=== PATIENT | male | born 1955 | race Caucasian/White ===

== ENCOUNTER → 2016-07-26 | Outpatient (CLI) | payer BC ==
[~2016-07-26] MED LIST: HYDR-3419 PO; LISI20TA PO; PANT40TA PO; PRAV80TA2 PO; [UNRECOGNIZED DRUG - OTHER] PO
[2016-07-26 08:50] LABS: ALT/SGPT 31 U/L (12-78); BLOOD UREA NITROGEN 19 mg/dl (7-18); BUN/CREATININE RATIO 14.8 (10-20); CARBON DIOXIDE 29 mmol/L (21-32); CHLORIDE 104 mmol/L (98-107); CHOLESTEROL 212 mg/dl (0-200); GLUCOSE 107 mg/dl (70-99); POTASSIUM 3.7 mmol/L (3.5-5.1); SODIUM 142 mmol/L (136-145)
[2016-07-26 08:56] LABS: ALB/GLOB RATIO 0.9 (0.9-2); ALKALINE PHOSPHATASE 68 U/L (45-117); AST/SGOT 19 U/L (15-37); CHOLESTEROL/HDL RATIO 4.5; HDL CHOLESTEROL 47 mg/dl; LDL CHOLESTEROL CALCULATED 110 mg/dl; TRIGLYCERIDES 274 mg/dl (0-150); VERY LOW DENSITY LIPOPROT CALC 55 mg/dl
[2016-07-26 10:30] LABS: ESTIMATED AVERAGE GLUCOSE 120 mg/dl; HA1C FLAG Normal (Normal)
== END | disposition home or self-care (01) ==
LOC: C.LAB 06:57
PROVIDERS: ATTEND Internal Medicine
DX: R73.01 Impaired fasting glucose (principal)

== ENCOUNTER → 2016-09-03 | Outpatient (CLI) | payer BC ==
[~2016-09-03] MED LIST changes: +GLUCTAB7 PO; +LISI-787 PO
== END | disposition home or self-care (01) ==
LOC: C.PATHSPEC 15:00
PROVIDERS: ATTEND Physician Assistant Medical
DX: L82.1 Other seborrheic keratosis (principal); L91.8 Other hypertrophic disorders of the skin

== ENCOUNTER → 2017-03-13 | Outpatient (CLI) | payer BC ==
[~2017-03-13] MED LIST changes: -GLUCTAB7 PO; -LISI-787 PO
[2017-03-13 10:59] LABS: ALT/SGPT 25 U/L (12-78); BLOOD UREA NITROGEN 15 mg/dl (7-18); BUN/CREATININE RATIO 12.3 (10-20); CALCIUM 9.2 mg/dl (8.5-10.1); CARBON DIOXIDE 32 mmol/L (21-32); CHLORIDE 104 mmol/L (98-107); CHOLESTEROL 192 mg/dl (0-200); GLUCOSE 101 mg/dl (70-99); SODIUM 140 mmol/L (136-145); TRIGLYCERIDES 189 mg/dl (0-150); VERY LOW DENSITY LIPOPROT CALC 38 mg/dl
[2017-03-13 11:04] LABS: ALB/GLOB RATIO 1.1 (0.9-2); ALKALINE PHOSPHATASE 67 U/L (45-117); AST/SGOT 16 U/L (15-37); HDL CHOLESTEROL 48 mg/dl; LDL CHOLESTEROL CALCULATED 106 mg/dl
== END | disposition home or self-care (01) ==
LOC: C.LAB 09:42
PROVIDERS: ATTEND Internal Medicine
DX: Z12.5 Encounter for screening for malignant neoplasm of prostate (principal); R73.01 Impaired fasting glucose

== ENCOUNTER 2017-03-23 21:24 | Emergency (ER) | payer BC ==
[~2017-03-23] VITALS: Ht 172.7 cm; Wt 96.8 kg
[2017-03-23 21:34] VITALS: TEMP 36.6; Ht 172.7 cm; Wt 96.8 kg
[2017-03-23] MEDS ORDERED: PHENYLEPHRINE HCL INJ 10 MG in SYRINGE 19 ML ITC STA (21:41)
[2017-03-23] MEDS ORDERED: SODIUM CHLORIDE 0.9% 500ML 500 ML IV STA (21:51)
[2017-03-23] MEDS ORDERED: ONDANSETRON INJ 2 MG/ML 2 ML VIAL IV STA (21:51)
[2017-03-23] MEDS ORDERED: HYDROmorphone INJ 1 MG/ML SYR IV STA (21:51)
[2017-03-23] MEDS ORDERED: LISI-787 PO (21:54)
[2017-03-23] MEDS ORDERED: GLUCTAB7 PO (21:54)
--- NOTE | 2017-03-23 22:03 | EMERGENCY ROOM VISIT NOTE ---
History Report prepared by Tonnyibrobles: Mignon Marsh Under the Supervision of: Dr. Masoud Bianchi M.D. First contact with patient: 21:48 Chief Complaint: OTHER COMPLAINT Stated Complaint: ERECTION OVER 4 HOURS History of Present Illness The patient is a 61 year old male who presents to the Emergency Room with complaints of a persistent erection for the past 5 hours. He is accompanied by his . He states he was at the office of Dr. rAevalo of [facility], for a procedure this afternoon and was given a shot for the erection. He called their office this evening and they referred him here to the ED for evaluation. He rates his discomfort as an 8/10 in severity. He denies any other complaints at today's visit. Source of History: patient Onset: 5 hours [employer] Position: other (penis) Symptom Intensity: 8/10 Timing: other (persistent) Review of Systems See HPI for pertinent positives & negatives. A total of 10 systems reviewed and were otherwise negative. Past Medical & Surgical Medical Problems: (1) Hypertension Social History Smoking Status: Never Smoker Alcohol Use: occasionally Drug Use: none Marital Status: Housing Status: lives with family Occupation Status: retired Current/Historical Medications Scheduled Qfohmnpxczt-Mxpjyphzdjm-Dkr C- (Glucosamine Chondroitin), 2 TABS PO DAILY Lisinopril/Hctz (Zestoretic 20MG/12.5MG), 1 TAB PO DAILY Pantoprazole (Protonix), 40 MG PO QAM Pravastatin Sodium (Pravastatin Sodium), 80 MG PO QAM Allergies Coded Allergies: Sulfa Drugs (Verified Allergy, Unknown, RASH, 03/23/17) Physical Exam Vital Signs Date Time Temp Pulse Resp B/P (MAP) Pulse Ox O2 Delivery O2 Flow Rate FiO2 03/24/17 00:26 69 18 114/69 97 Room Air 03/23/17 23:48 84 18 117/65 95 Room Air 03/23/17 22:08 72 03/23/17 21:34 36.6 72 16 158/93 98 Room Air Physical Exam GENERAL: Patient is a healthy-appearing well-nourished 61 year old male HEAD: Normocephalic atraumatic EYES: Ocular movements intact pupils equal and react to light OROPHARYNX mucous membranes are moist no exudates present no erythema or edema present NECK: Supple no nuchal rigidity CARDIAC: Normal S1 and S2 BACK: No CVA tenderness EXTREMITIES: No pain upon palpation normal muscle strength in all groups no clubbing cyanosis or edema NEURO: Patient is following commands and answering questions appropriately. Alert and oriented x3 Cranial Nerves 2-12 grossly intact Medical Decision & Procedures Laboratory Results 03/23/17 22:03 Red Blood Count 4.85, Mean Corpuscular Volume 86.2, Mean Corpuscular Hemoglobin 29.5, Mean Corpuscular Hemoglobin Concent 34.2, Mean Platelet Volume 9.2, Neutrophils (%) (Auto) 61.9, Lymphocytes (%) (Auto) 28.9, Monocytes (%) (Auto) 7.9, Eosinophils (%) (Auto) 1.0, Basophils (%) (Auto) 0.1, Neutrophils # (Auto) 5.35, Lymphocytes # (Auto) 2.50, Monocytes # (Auto) 0.68, Eosinophils # (Auto) 0.09, Basophils # (Auto) 0.01 03/23/17 22:03 Test 03/23/17 22:03 White Blood Count 8.65 K/uL (4.8-10.8) Red Blood Count 4.85 M/uL (4.7-6.1) Hemoglobin 14.3 g/dL (14.0-18.0) Hematocrit 41.8 % (42-52) Mean Corpuscular Volume 86.2 fL (80-100) Mean Corpuscular Hemoglobin 29.5 pg (25-34) Mean Corpuscular Hemoglobin Concent 34.2 g/dl (32-36) Platelet Count 149 K/uL (130-400) Mean Platelet Volume 9.2 fL (7.4-10.4) Neutrophils (%) (Auto) 61.9 % Lymphocytes (%) (Auto) 28.9 % Monocytes (%) (Auto) 7.9 % Eosinophils (%) (Auto) 1.0 % Basophils (%) (Auto) 0.1 % Neutrophils # (Auto) 5.35 K/uL (1.4-6.5) Lymphocytes # (Auto) 2.50 K/uL (1.2-3.4) Monocytes # (Auto) 0.68 K/uL (0.11-0.59) Eosinophils # (Auto) 0.09 K/uL (0-0.5) Basophils # (Auto) 0.01 K/uL (0-0.2) RDW Standard Deviation 41.6 fL (36.4-46.3) RDW Coefficient of Variation 13.1 % (11.5-14.5) Immature Granulocyte % (Auto) 0.2 % Immature Granulocyte # (Auto) 0.02 K/uL (0.00-0.02) Anion Gap 7.0 mmol/L (3-11) Est Creatinine Clear Calc Drug Dose 76.4 ml/min Estimated GFR () 78.9 Estimated GFR (Non- 68.1 BUN/Creatinine Ratio 13.4 (10-20) Calcium Level 9.0 mg/dl (8.5-10.1) Phosphorus Level 3.6 mg/dl (2.5-4.9) Albumin 3.8 gm/dl (3.4-5.0) Labs reviewed by ED physician. Medications Administered Medications (Trade) Dose Ordered Sig/Toney Route Start Time Stop Time Status Last Admin Dose Admin Phenylephrine HCl 10 mg/Syringe 20 ml @ 0 mls/min NOW STAT ITC 03/23/17 21:41 03/23/17 21:42 DC 03/23/17 22:19 20 MLS/MIN Hydromorphone HCl (Dilaudid Inj) 1 mg NOW STAT IV 03/23/17 21:51 03/23/17 21:52 DC 03/23/17 22:15 1 MG Ondansetron HCl (Zofran Inj) 4 mg NOW STAT IV 03/23/17 21:51 03/23/17 21:52 DC 03/23/17 22:14 4 MG Sodium Chloride 500 ml @ 999 mls/hr Q31M STAT IV 03/23/17 21:51 03/23/17 22:21 DC 03/23/17 22:14 999 MLS/HR Lidocaine HCl (Buffered Lidocaine 1% Inj) 20 ml STK-MED ONCE INFIL 03/23/17 22:27 03/23/17 22:28 DC 03/23/17 22:27 20 ML ED Course 2140: Phenylephrine HCl 10 mg/Syringe 20 ml @ 0 mls/hr ITC. 2150: NSS 500 ml @ 999 mls/hr IV, Zofran 4 mg IV, Dilaudid 1 mg IV. 2151: I discussed the patients case with Dr. Parnell, [facility]. The patient will be further evaluated. 2155: Past medical records reviewed. The patient was evaluated in room A9B. A complete history and physical examination was performed. 0: I discussed the patients case with Dr. Parnell. He states if the priapism remains down until midnight, he will follow up with the patient in the office. 0: I reevaluated the patient. He is feeling well and resting comfortably. I discussed his discharge instructions and he verbalized complete understanding and agreement. Medical Decision This is a 61-year-old male that presents emergency Department with a priapism. An IV was established, patient given normal saline bolus, Dilaudid. I did discuss the case with urologist on-call Dr. Parnell who came in any ejected phenylephrine. The patient remained flaccid and was observed for a total hour further in the emergency department. I believe the patient is well enough to be discharged home. He is going to follow-up with urology in the morning. Medication Reconcilliation Current Medication List: was personally reviewed by me Blood Pressure Screening Patient's blood pressure: Normal blood pressure Blood pressure disposition: Did not require urgent referral Consults Time Called: 2149 Consulting Physician: [facility] Returned Call: 2151 I discussed the patients case with [facility]. The patient will be further evaluated. Impression Primary Impression: Priapism Scribe Attestation The scribe's documentation has been prepared under my direction and personally reviewed by me in its entirety. I confirm that the note above accurately reflects all work, treatment, procedures, and medical decision making performed by me. Departure Information Dispostion Home / Self-Care Referrals Ranulfo Kamara M.D. (PCP) Patient Instructions ED Priapism, My [facility] Additional Instructions Follow up with DR Parnell's office tomorrow morning You have been examined and treated today on an emergency basis only. This is not a substitute for, or an effort to provide, complete comprehensive medical care. It is impossible to recognize and treat all injuries or illnesses in a single emergency department visit. It is therefore important that you follow up closely with Dr Kamara. Call as soon as possible for an appointment. Thank you for your time and consideration. I look forward to speaking with you again soon. Please don't hesitate to call us if you have any questions.
[2017-03-23 22:22] LABS: BASO % 0.1 %; BASO ABS # 0.01 K/uL (0-0.2); COMPLETE YES; HEMATOCRIT 41.8 % (42-52); IG% 0.2 %; LYMPH % 28.9 %; MEAN CELL VOLUME 86.2 fL (80-100); MEAN CORPUSCULAR HEMOGLOBIN 29.5 pg (25-34); MEAN CORPUSCULAR HGB CONC 34.2 g/dl (32-36); MEAN PLATELET VOLUME 9.2 fL (7.4-10.4); MONO % 7.9 %; NEUT % 61.9 %; PLATELET COUNT 149 K/uL (130-400); RED BLOOD COUNT 4.85 M/uL (4.7-6.1); WHITE BLOOD COUNT 8.65 K/uL (4.8-10.8)
--- NOTE | 2017-03-23 22:26 | Progress Note ---
Progress Note Date of Service Mar 23, 2017. Progress Note 61y/o male seen in the urology office today as an outpt - suffers from Peyronie's disease - during evaluation today, had an injection of alprostadil to induce an erection - unfortunately, his erection did not resolve - quite painful Physical - Erect penis, tender - RRR, - HR 65 - on monitor - no resp distress Procedure - injection of phenylephrine - 1ml after swab with betadine - observed for 10min - no decrease in erection - skin anesthesized with 1% lidocaine - 18g needle passed into the corpora - significant, dark, old blood drained from the penis - decreased erection by 50 %+ - injected 1ml of dilute phenylephrine - maintained 50% erection for 5 minutes then started to increase back to a full erection - drained again - injected 1ml more of dilute phenylephrine - maintained 50% erection for 5 minutes - withdrew the needle held pressure (already with a moderate hematoma at that stage - no change (50% erection after 10 additional minutes) - maintained at the mid range erection after an additional 10 min A/P: Pharmacological priapism - attempted simple reversal with phenylephrine - required evacuation of old blood followed by re-injection - still with incomplete response - however, given the partial detumescence and the amount of medication given, I feel we are best suited to observe this overnight - I have given him strict instructions to return to the ER if his erection returns to the degree it was at first eval - I have asked him to come to our office for evaluation tomorrow morning regardless - moderate hematoma
[2017-03-23] MEDS ORDERED: XYLOCAINE 1%/SOD BICARB 20 ML VIAL INFIL ONE (22:27)
[2017-03-23 22:49] LABS: BUN/CREATININE RATIO 13.4 (10-20); CREATININE 1.16 mg/dl (0.60-1.40); PHOSPHORUS 3.6 mg/dl (2.5-4.9); POTASSIUM 3.3 mmol/L (3.5-5.1)
[2017-03-24 00:26] VITALS: BP 114/69; PULSE 69; O2SAT 97
== END 2017-03-24 00:35 | disposition home or self-care (01) ==
LOC: C.EDB 21:25 → C.EDA 03-24 00:35
DX: N48.33 Priapism, drug-induced (principal); I10 Essential (primary) hypertension; N48.6 Induration penis plastica; N48.89 Other specified disorders of penis; Z79.899 Other long term (current) drug therapy

== ENCOUNTER → 2017-07-10 | Day surgery (SDC) | payer OTHER ==
[2017-06-19 09:42] VITALS: BMI 31.0
--- NOTE | 2017-06-19 10:08 | PAT Medication Instructions ---
Service Date Jun 19, 2017. Current Home Medication List Acetaminophen (Tylenol), 500 MG PO QD PRN for Pain Gzszqamsusw-Lmolhazhrta-Ibq C- (Glucosamine Chondroitin), 2 TABS PO QAM Lisinopril/Hctz (Zestoretic 20MG/12.5MG), 1 TAB PO QAM Pantoprazole (Protonix), 40 MG PO QAM Pravastatin Sodium (Pravastatin Sodium), 80 MG PO QAM Medication Instructions For Your Scheduled Surgery - Hold the following medications 2 weeks prior to surgery: Kqxfhxmpmxm-Mqgavglrwzz-Joj C- (Glucosamine Chondroitin), 2 TABS PO QAM - Hold the following medications the morning of surgery: Lisinopril/Hctz (Zestoretic 20MG/12.5MG), 1 TAB PO QAM - Take the following medications the morning of surgery with a sip of water OTHERWISE NOTHING TO EAT OR DRINK AFTER MIDNIGHT: Pantoprazole (Protonix), 40 MG PO QAM Pravastatin Sodium (Pravastatin Sodium), 80 MG PO QAM Acetaminophen (Tylenol), 500 MG PO QD PRN for Pain (may take if needed up to 4 hours prior to surgery) If you have any questions please call us at [phone] or [phone] or [phone]
[2017-06-19 10:48] LABS: BASO % 0.2 %; BASO ABS # 0.01 K/uL (0-0.2); EOS % 1.3 %; EOS ABS # 0.07 K/uL (0-0.5); HEMATOCRIT 41.9 % (42-52); HEMOGLOBIN 14.5 g/dL (14.0-18.0); IG# 0.01 K/uL (0.00-0.02); LYMPH % 39.6 %; LYMPH ABS # 2.18 K/uL (1.2-3.4); MEAN CELL VOLUME 87.3 fL (80-100); MEAN CORPUSCULAR HEMOGLOBIN 30.2 pg (25-34); MEAN CORPUSCULAR HGB CONC 34.6 g/dl (32-36); MEAN PLATELET VOLUME 9.6 fL (7.4-10.4); MONO % 6.9 %; MONO ABS # 0.38 K/uL (0.11-0.59); NEUT % 51.8 %; NEUT ABS # 2.85 K/uL (1.4-6.5); PLATELET COUNT 142 K/uL (130-400); RED CELL DISTRIBUTION WIDTH CV 12.9 % (11.5-14.5); RED CELL DISTRIBUTION WIDTH SD 41.4 fL (36.4-46.3)
[2017-06-19 10:58] LABS: INR 0.9 (0.9-1.1); PTT PATIENT 26.1 SECONDS (21.0-31.0)
[2017-06-19 11:03] LABS: CREATININE 1.39 mg/dl (0.60-1.40); POTASSIUM 3.8 mmol/L (3.5-5.1)
--- NOTE | 2017-06-19 11:03 | DIAGNOSTIC IMAGING REPORT ---
TWO VIEW CHEST CLINICAL HISTORY: Preoperative examination. FINDINGS: PA and lateral chest radiographs are compared to study dated 02/27/2012. The cardiomediastinal silhouette is unremarkable. The lungs and pleural spaces are clear. There is no pneumothorax. The bony thorax appears intact. Cholecystectomy clips are noted. IMPRESSION: No active disease in the chest. Electronically signed by: Samm Kelley M.D. 06/19/2017 11:02 AM Dictated Date/Time: 06/19/2017 11:01 AM
--- NOTE | 2017-07-09 13:21 | History and Physical ---
History & Physical Date Jul 09, 2017. Chief Complaint right foot pain History of Present Illness The patient is a 62 year old male with complaints of right foot pain and 1st MTP osteoarthritis. He was treated conservatively for the 1st MTP arthritic change but failed all conservative management. He is now being set up for surgical management. Past Medical/Surgical History Medical Problems: (1) Hypertension (2) Hypercholesterolemia (3) Acid reflux Past surgical hx: (1) Right knee surgery (2) Left hand surgery Social hx: (1) Denies smoking and alcohol use. Allergies Coded Allergies: Sulfa Drugs (Verified Allergy, Unknown, RASH, 06/19/17) Home Medications Scheduled Xfscsjdpits-Wgfkyoauxoz-Cal C- (Glucosamine Chondroitin), 2 TABS PO QAM Lisinopril/Hctz (Zestoretic 20MG/12.5MG), 1 TAB PO QAM Pantoprazole (Protonix), 40 MG PO QAM Pravastatin Sodium (Pravastatin Sodium), 80 MG PO QAM Scheduled PRN Acetaminophen (Tylenol), 500 MG PO QD PRN for Pain Physical Examination Skin: warm/dry, no rash Eyes: normal inspection ENT: normal ENT inspection Head: normocephalic, atraumatic Neck: supple, no adenopathy, trachea midline Respiratory/Chest: lungs clear, normal breath sounds, no respiratory distress Cardiovascular: regular rate, rhythm Abdomen / GI: normal bowel sounds, non tender Extremities: + pertinent finding (Right foot: antalgic right gait. Swelling of the 1st MTP joint. Painful PROM and AROM with crepitation. Tender 1st MTP joint. ) Neurologic/Psych: no motor/sensory deficits, alert, oriented x 3 Diagnosis Right 1st MTP osteoarthritis Plan of Treatment Recommend a right foot 1st MTP Arthrosurface hemiarthroplasty. All potential risks, benefits, complications, alternatives, and rehab have been discussed and the patient wishes to proceed. He will be scheduled for 07.10.17.
[~2017-07-10] VITALS: Ht 175.3 cm; Wt 97.9 kg
[~2017-07-10] MED LIST changes: +ACET-1256 PO; +ASPI81TA28 PO; +ATROPINE SULFATE 0.1 MG/ML 5ML SYR IV PRN; +BACITRACIN 50000 UNIT VIAL ONE; +BUPIVACAINE/EPINEPHRINE 0.25% 1:200,000 30 ML VIAL ONE; +CEFAZOLIN 2000MG IV PUSH 10 ML IV SCH; +DEXAMETHASONE SOD INJ 4 MG/ML VIAL ONE; +EpHEDrine SULFATE INJ 50 MG/ML AMP IV PRN; +FENTANYL CITRATE INJ 50 MCG/1 ML 2 ML VIAL IV PRN; +FENTANYL CITRATE INJ 50 MCG/1 ML 2 ML VIAL ONE; +GLUCTAB7 PO; -HYDR-3419 PO; +HYDROmorphone INJ 1 MG/ML SYR IV PRN; +LACTATED RINGER'S 1000ML 1,000 ML IV SCH; +LIDOCAINE HCL 2% 2 ML VIAL (20MG/ML) ONE; +LISI-787 PO; -LISI20TA PO; +MIDAZOLAM HCL 1 MG/ML 2ML VIAL ONE; +ONDANSETRON INJ 2 MG/ML 2 ML VIAL IV PRN; +ONDANSETRON INJ 2 MG/ML 2 ML VIAL ONE; +OXYC-57 PO; +OXYCODONE/ACETAMINOPHEN 5-325 TAB PO PRN; +PERCOCET HOME PACK PO ONE; +PROMETHAZINE HCL INJ 6.25 MG in SODIUM CHLORIDE 0.9% 50ML 50 ML IV PRN; +PROPOFOL IV EMULSION 10 MG/ML 20 ML VIAL IV ONE; +ROPIVACAINE 0.5% 5 MG/ML 30 ML VIAL ONE; -[UNRECOGNIZED DRUG - OTHER] PO
[2017-07-10 13:22] VITALS: BP 181/92; PULSE 58; TEMP 36.4; O2SAT 98; Ht 175.3 cm; Wt 97.9 kg
--- NOTE | 2017-07-10 15:06 | History & Physical Bridge Note ---
H&P Re-Evaluation Bridge Note: I have examined the patient, reviewed the History & Physical and in the interval since the performance of the History & Physical I have noted the following changes of clinical significance: No changes noted
--- NOTE | 2017-07-10 18:48 | Discharge Instructions ---
Discharge Instructions Date of Service Jul 10, 2017. Admission Reason for Admission: Right Ankle/Foot Osteoarthritis, Acquired Hallux V Discharge Discharge Diagnosis / Problem: right 1st metatarsophalangeal osteoarthritis Discharge Goals Goal(s): Decrease discomfort, Improve function Activity Recommendations Activity Limitations: per Instructions/Follow-up section Weightbearing Status: Right partial (heel weightbearing only) . Instructions / Follow-Up Instructions / Follow-Up ACTIVITY RECOMMENDATIONS: Limitations: Heel weight bearing only if able to tolerate. When the pain is controlled, you may do some passive motion with the great toe. You may do the range of motion with your hand. SPECIAL CARE INSTRUCTIONS: * Some drainage onto the dressing is normal and is no cause for alarm. * Some swelling is natural especially after walking. * When resting, keep your foot elevated above the level of your heart. * Call [facility] if you notice: -Increased drainage -Fever over 101 degrees F -Severe constant pain BANDAGE: * Leave bandage/cast in place unless otherwise directed. * Keep bandage/cast dry at all times. FOLLOW UP VISIT WITH DR. ROMERO If appointment is not already scheduled: Please call [facility] after you get home today to schedule a follow-up appointment for [address] Romero at . Current Hospital Diet Patient's current hospital diet: Discharge Diet Recommended Diet: Regular Diet Pending Studies Studies pending at discharge: no Medical Emergencies . Who to Call and When: Medical Emergencies: If at any time you feel your situation is an emergency, please call 911 immediately. . Non-Emergent Contact Non-Emergency issues call your: Surgeon Call Non-Emergent contact if: temperature is above 101, your pain is not controlled, your pain is worsening, wound has increased drainage . "Provider Documentation" section prepared by Brian Webber. . VTE Core Measure Inpt VTE Proph given/why not?: SCD's
--- NOTE | 2017-07-10 19:13 | [facility] Post Operative Brief Note ---
Immediate Operative Summary Operative Date Jul 10, 2017. Pre-Operative Diagnosis Right 1st MTP osteoarthritis, Hallux Rigidus Post-Operative Diagnosis Right 1st MTP osteoarthritis, Hallux Rigidus Procedure(s) Performed Right Foot Arthroplasty 1st Metatarsophalangeal Joint, Arthrosurface Hemiarthroplasty Surgeon Dr. Christiano Charles Weaver Wire Loom Surgeon(s) Kathia Morales PA-C Estimated Blood Loss 1cc Findings Consistent with Post-Op Diagnosis Specimens None Drains None Anesthesia Type General Regional Complication(s) none Disposition Accompanied Pt To Recover: no Disposition: Recovery Room / PACU
--- NOTE | 2017-07-10 19:50 | Anesthesiology Progress Note ---
Anesthesia Post Op Note Date & Time Jul 10, 2017 at 19:50 Vital Signs Pain Intensity: 0 Vital Signs Past 12 Hours Date Time Temp Pulse Resp B/P (MAP) Pulse Ox O2 Delivery O2 Flow Rate FiO2 07/10/17 19:25 36.6 65 18 166/85 100 Nasal Cannula 3 07/10/17 17:46 66 16 136/66 (89) 99 Oxymask 8 07/10/17 13:22 36.4 58 20 181/92 (121) 98 Room Air Notes Mental Status: alert / awake / arousable, participated in evaluation Pt Amnestic to Procedure: Yes Nausea / Vomiting: adequately controlled Pain: adequately controlled Airway Patency, RR, SpO2: stable & adequate BP & HR: stable & adequate Hydration State: stable & adequate Anesthetic Complications: no major complications apparent
--- NOTE | 2017-07-10 19:55 | DIAGNOSTIC IMAGING REPORT ---
R FOOT 2 VIEWS CLINICAL HISTORY: 62 years-old Male presenting with RT FOOT. TECHNIQUE: 3 fluoroscopic spot image(s) obtained as part of an intraoperative procedure. COMPARISON: 11/23/2015. FINDINGS/IMPRESSION: Interval arthroplasty of the head of the first metatarsal. Normal anatomic alignment. Please see surgical report for further details. Fluoroscopy dosage (mGy): 0.3. Fluoroscopy time: 14.4 seconds. Number of fluoroscopic spot images: 3. Electronically signed by: Ranulfo Ingram M.D. 07/10/2017 7:54 PM Dictated Date/Time: 07/10/2017 7:52 PM
--- NOTE | 2017-07-10 19:57 | Anesthesiology Progress Note ---
Anesthesia Post Op Note Date & Time Jul 10, 2017 at 19:57 Vital Signs Pain Intensity: 0 Vital Signs Past 12 Hours Date Time Temp Pulse Resp B/P (MAP) Pulse Ox O2 Delivery O2 Flow Rate FiO2 07/10/17 19:25 36.6 65 18 166/85 100 Nasal Cannula 3 07/10/17 17:46 66 16 136/66 (89) 99 Oxymask 8 07/10/17 13:22 36.4 58 20 181/92 (121) 98 Room Air Notes Mental Status: alert / awake / arousable, participated in evaluation Pt Amnestic to Procedure: Yes Nausea / Vomiting: adequately controlled Pain: adequately controlled Airway Patency, RR, SpO2: stable & adequate BP & HR: stable & adequate Hydration State: stable & adequate Anesthetic Complications: no major complications apparent
[2017-07-10 20:05] VITALS: BP 165/89; PULSE 74; TEMP 36.4; O2SAT 96
[2017-07-10 20:41] VITALS: BP 158/85; PULSE 80; TEMP 36.6; O2SAT 94
--- NOTE | 2017-07-10 20:50 | DIAGNOSTIC IMAGING REPORT ---
R FOOT MIN 3 VIEWS ROUTINE CLINICAL HISTORY: 62 years-old Male presenting with post op. TECHNIQUE: Frontal, oblique, and lateral views of the right foot were obtained. COMPARISON: 11/23/2015. FINDINGS: Postsurgical changes of arthroplasty of the head of the first metatarsal. Soft tissue emphysema consistent with recent postoperative state. No malalignment. No fracture or hardware complication is apparent. Enthesophyte at the origin of the plantar fascia noted. IMPRESSION: Expected postsurgical changes of hemiarthroplasty of the head of the first metatarsal. Electronically signed by: Ranulfo Ingram M.D. 07/10/2017 8:48 PM Dictated Date/Time: 07/10/2017 8:47 PM
--- NOTE | 2017-07-10 21:38 | OPERATIVE REPORT ---
DATE OF OPERATION: 07/10/2017 PREOPERATIVE DIAGNOSES: 1. Right foot first metatarsophalangeal joint degenerative joint disease. 2. Hallux rigidus of the first metatarsophalangeal. POSTOPERATIVE DIAGNOSES: Same. PROCEDURE: Right foot first metatarsophalangeal joint Arthrosurface hemiarthroplasty using a 9.5 mm taper post and a 15 mm articular component dorsiflexion, 1.5 mm x 3.5 mm offset. SURGEON: Tho Charles DO. CASEWORKER INTAKE: Radha Morales PA-C who was present for patient positioning, sterile prep and drape, management of retractors and instruments. He was present through the critical portions of the case including wound closure, application of sterile dressing and transport of the patient to recovery. ANESTHESIA: General LMA with popliteal block. SPECIMENS: None. DRAINS: None. COMPLICATIONS: None. BLOOD LOSS: 1 mL. PERTINENT HISTORY: This is a 62-year-old gentleman with chronic persistent and worsening pain of the right first metatarsophalangeal joint. He attempted and failed conservative management including shoe wear modification, activity modification, anti-inflammatories, rest, intraarticular steroid injections and physician directed home exercises. Radiographically demonstrates loss of joint space, marginal osteophytes, subchondral sclerosis and subchondral cysts of the first metatarsophalangeal joint. The patient was then scheduled for hemiarthroplasty as indicated. All potential risks, benefits, complications, alternatives, rehab, potential for incomplete relief of symptoms, need for further surgery, DVT, PE, , persistent pain, swelling, scarring, weakness, neurovascular injury, wound complications, hardware failure, nonunion, malunion and bone fracture were discussed with the patient. Also, discussed possibility for revision of the arthroplasty to a revision arthroplasty versus a fusion. The patient decided to proceed with the procedure as indicated. DESCRIPTION OF THE PROCEDURE: After popliteal block was administered, the patient was taken to the operative suite, placed supine on the operating room table. After reviewing consent and identification of proper operative site, the patient was anesthetized, LMA was placed. Tourniquet was placed high on the right thigh over cast padding. Right lower extremity was then sterilely prepped and draped in the usual fashion, elevated and exsanguinated with an Esmarch bandage. Esmarch tourniquet was applied over sterile surgical towel at the level of the ankle. The pneumatic tourniquet was not used during the case. Next, a 15 blade scalpel was used to make an incision over the dorsal aspect of the first metatarsophalangeal joint. The incision was then deepened through the subcutaneous tissue. Meticulous hemostasis was achieved with electrocautery. Full thickness skin flaps were developed. The extensor hallucis longus was identified, freed, retracted, and protected laterally. Next, a Weitlaner retractor was placed in the incision and then the dorsal capsule and extensor brevis was then incised in line with skin incision, elevated both medially and laterally. Next, a hypertrophic synovium was encountered and this was resected with a rongeur. Next, the capsule was then retracted with a rongeur and a 15 blade scalpel was used to release the capsular attachments of the first metatarsophalangeal joint dorsally, medially and laterally. Next, a McGlamry elevator was placed into the joint between the first metatarsal and the sesamoids. This was then hyperplantarflexed to release soft tissue contracture. Next, the rongeur was used to resect marginal osteophytes at the proximal phalanx of the great toe. Next, the wound was copiously irrigated with sterile normal saline. This was then followed by use of a guide pin and under fluoroscopic assistance was placed essentially into the center-center position of the first metatarsal. Next, the initial reamer was passed over the guidepin and used to ream for the post. Next, the bone tap was then used to tap the first metatarsal followed by irrigation with copious amounts of sterile normal saline with bacitracin and then implantation of the threaded post. This was countersunk approximately 1-1.25 mm. Next, the Rodriges taper alignment jackson was then placed into the threaded post followed by measurement of the first metatarsal head. Next, appropriate dorsal phalange reamer was then placed into the threaded posts and then used to ream the dorsal phalange of the first metatarsal. Next, this was irrigated with sterile normal saline. A trial was then placed gently into the Henry taper of the threaded post and then a sagittal saw was used to resect osteophytes circumferentially from around the trial within the first metatarsal head. Next, after excess bone was then excised wound was irrigated once again with sterile normal saline. This was then followed by impaction of the final implant into the threaded post and radiographs were obtained confirming position and alignment. Next, the wound was once again irrigated with sterile normal saline. The dorsal capsule was closed using 3-0 Vicryl suture then followed by closure of the dermis with buried interrupted 3-0 Vicryl x2 sutures and the skin was then closed using 4-0 nylon. Next, sterile compressive forefoot dressing was applied overwrapped with Coban. The tourniquet was released. The patient was awakened and taken to recovery in stable condition. I attest to the content of the Intraoperative Record and any orders documented therein. Any exceptions are noted below. MTDD
== END | disposition home or self-care (01) ==
LOC: C.ACU 13:03
PROVIDERS: ATTEND Orthopaedic Surgery Sports Medicine
DX: M20.11 Hallux valgus (acquired), right foot (principal); M19.071 Primary osteoarthritis, right ankle and foot; I10 Essential (primary) hypertension; E78.00 Pure hypercholesterolemia, unspecified; K21.9 Gastro-esophageal reflux disease without esophagitis

== ENCOUNTER → 2017-08-12 | Day surgery (SDC) | payer BC, OTHER ==
[2017-07-30 09:53] VITALS: Ht 175.3 cm; Wt 97.7 kg
[~2017-08-12] VITALS: Ht 175.3 cm; Wt 97.7 kg
[~2017-08-12] MED LIST changes: -ATROPINE SULFATE 0.1 MG/ML 5ML SYR IV PRN; -BACITRACIN 50000 UNIT VIAL ONE; -BUPIVACAINE/EPINEPHRINE 0.25% 1:200,000 30 ML VIAL ONE; -CEFAZOLIN 2000MG IV PUSH 10 ML IV SCH; -DEXAMETHASONE SOD INJ 4 MG/ML VIAL ONE; -EpHEDrine SULFATE INJ 50 MG/ML AMP IV PRN; -FENTANYL CITRATE INJ 50 MCG/1 ML 2 ML VIAL IV PRN; -FENTANYL CITRATE INJ 50 MCG/1 ML 2 ML VIAL ONE; -HYDROmorphone INJ 1 MG/ML SYR IV PRN; -LACTATED RINGER'S 1000ML 1,000 ML IV SCH; -MIDAZOLAM HCL 1 MG/ML 2ML VIAL ONE; -ONDANSETRON INJ 2 MG/ML 2 ML VIAL IV PRN; -ONDANSETRON INJ 2 MG/ML 2 ML VIAL ONE; -OXYC-57 PO; -OXYCODONE/ACETAMINOPHEN 5-325 TAB PO PRN; -PERCOCET HOME PACK PO ONE; -PROMETHAZINE HCL INJ 6.25 MG in SODIUM CHLORIDE 0.9% 50ML 50 ML IV PRN; -ROPIVACAINE 0.5% 5 MG/ML 30 ML VIAL ONE; +SODIUM CHLORIDE 0.9% 500ML 500 ML IV ONE
--- NOTE | 2017-08-12 08:41 | Endo History and Physical ---
History & Physical Date of Service: Aug 12, 2017. Chief Complaint: Family history of colon cancer-uncle, History of colon polyps Referring Physician: Dr. Ranulfo Kamara History of Present Illness 62 yo CM who presents for colonoscopy secondary to history of colon polyps and family history of colon cancer. Past Surgical History Hx Cardiac Surgery: No Hx Internal Defibrillator: No Hx Pacemaker: No Hx Abdominal Surgery: No Hx of Implantable Prosthesis: No Hx Post-Op Nausea and Vomiting: No Hx Cancer Surgery: No Hx Thoracic Surgery: No Hx Orthopedic: Yes (RT KNEE MENISCUS, LT HAND TENDON REPAIR, RT FOOT) Hx Urinary Tract Surgery: No Family History None Social History Smoking Status: Never Smoker Hx Substance Use: No Hx Alcohol Use: No Allergies Coded Allergies: Sulfa Drugs (Verified Allergy, Unknown, RASH, 07/30/17) Current Medications Reported Home Medications Medications Dose Route/Sig Max Daily Dose Days Date Category Tylenol (Acetaminophen) 500 Mg Tab 1,000 Mg PO Q6H PRN 07/30/17 Reported Aspirin Ec (Aspirin) 81 Mg Tab 81 Mg PO DAILY 07/30/17 Reported Glucosamine Chondroitin (Qfuahrjfgme-Mykbtwtlazf-Wye C-) 1 Tab Tab 2 Tabs PO QAM 03/23/17 Reported Zestoretic 20MG/12.5MG (HCTZ/Lisinopril) Tab 1 Tab PO QAM 03/23/17 Reported Pravastatin Sodium 80 Mg Tab 80 Mg PO QAM 04/20/13 Reported Protonix (Pantoprazole Sodium) 40 Mg Tab 40 Mg PO QAM 02/05/09 Reported Vital Signs Weight (Kilograms): 97.73 Height (Feet): 5 Height (Inches): 9 Date Time Temp Pulse Resp B/P (MAP) Pulse Ox O2 Delivery O2 Flow Rate FiO2 08/12/17 08:05 36.6 79 18 138/89 (105) 94 Room Air Physical Exam General Appearance: WD/WN, no apparent distress Respiratory/Chest: Auscultation: breath sounds normal Cardiovascular: Heart Auscultation: RRR Abdomen: Bowel Sounds: normal Inspection & Palpation: soft, non-distended, no tenderness, guarding & rebound Assessment and Plan Assessment: 62 yo CM who presents for colonoscopy secondary to history of colon polyps and family history of colon cancer. Plan: Proceed with colonoscopy.
--- NOTE | 2017-08-12 09:02 | GI REPORT ---
Procedure Date: 08/12/2017 8:44 AM THIS REPORT HAS BEEN AMENDED Addendum Number: 1 Addendum Date: 08/12/2017 9:39:25 AM No specimens were collected during this procedure, and therefore, no pathology is pending. Repeat colonoscopy in 5 years due to history of colon polyps. Procedure: Colonoscopy Indications: High risk colon cancer surveillance: Personal history of colonic polyps, Family history of colon cancer in a distant relative Medicines: Monitored Anesthesia Care Complications: No immediate complications. Estimated Blood Loss: Estimated blood loss: none. Procedure: Pre-Anesthesia Assessment: - Prior to the procedure, a History and Physical was performed, and patient medications and allergies were reviewed. The patient's tolerance of previous anesthesia was also reviewed. The risks and benefits of the procedure and the sedation options and risks were discussed with the patient. All questions were answered, and informed consent was obtained. Prior Anticoagulants: The patient has taken aspirin, last dose was 1 day prior to procedure. ASA Grade Assessment: II - A patient with mild systemic disease. After reviewing the risks and benefits, the patient was deemed in satisfactory condition to undergo the procedure. After I obtained informed consent, the scope was passed under direct vision. Throughout the procedure, the patient's blood pressure, pulse, and oxygen saturations were monitored continuously. The scope was introduced through the anus and advanced to the terminal ileum. The colonoscopy was performed without difficulty. The patient tolerated the procedure well. The quality of the bowel preparation was good. The terminal ileum, ileocecal valve, appendiceal orifice, and rectum were photographed. Findings: The perianal and digital rectal examinations were normal. Multiple small-mouthed diverticula were found in the sigmoid colon. Non-bleeding internal hemorrhoids were found during retroflexion. The hemorrhoids were small. Impression: - Diverticulosis in the sigmoid colon. - Non-bleeding internal hemorrhoids. - No specimens collected. Recommendation: - Resume previous diet. - Continue present medications. - Repeat colonoscopy for surveillance based on pathology results. - Return to primary care physician as previously scheduled. Chip Liu DO 08/12/2017 9:01:57 AM This report has been signed electronically. Note Initiated On: 08/12/2017 8:44 AM I attest to the content of the Intraoperative Record and orders documented therein, exceptions below Chip Liu DO 08/12/2017 9:40:06 AM This report has been signed electronically.
--- NOTE | 2017-08-12 09:04 | Discharge Instructions ---
Endoscopy Patient Instructions Date / Procedure(s) Performed Aug 12, 2017. Colonoscopy Allergy Information Coded Allergies: Sulfa Drugs (Verified Allergy, Unknown, RASH, 07/30/17) Discharge Date / Findings Aug 12, 2017. Diverticulosis Internal hemorrhoids Medication Instructions Stopped Medication(s): Patient was told to hold everything except for his protonix. Patient did not take anything this am. OK to resume all medications today as prescribed Reported Home Medications Medications Dose Route/Sig Max Daily Dose Days Date Category Tylenol (Acetaminophen) 500 Mg Tab 1,000 Mg PO Q6H PRN 07/30/17 Reported Aspirin Ec (Aspirin) 81 Mg Tab 81 Mg PO DAILY 07/30/17 Reported Glucosamine Chondroitin (Zownpxkxhdk-Ewmoywkhcsl-Vcv C-) 1 Tab Tab 2 Tabs PO QAM 03/23/17 Reported Zestoretic 20MG/12.5MG (HCTZ/Lisinopril) Tab 1 Tab PO QAM 03/23/17 Reported Pravastatin Sodium 80 Mg Tab 80 Mg PO QAM 04/20/13 Reported Protonix (Pantoprazole Sodium) 40 Mg Tab 40 Mg PO QAM 02/05/09 Reported Provider Instructions Activity Restrictions - No exercising or heavy lifting for 24 hours. - Do not drink alcohol the day of the procedure. - Do not drive a car or operate machinery until the day after the procedure. - Do not make any important decisions or sign important papers in 24 hours after the procedure. Following Day: - Return to full activity which may include returning to work/school. Diet Start your diet with liquids and light foods (jello, soup, juice, toast). Then eat your usual diet if not nauseated. Treatment For Common After Affects For mild abdominal pain, bloating, or excessive gas: - Rest - Eat lightly - Lie on right side Follow-Up Information Follow-up with Dr. Ranulfo Kamara as scheduled Anesthesia Information What You Should Know You have had a procedure that required some medicine to reduce anxiety and discomfort. This treatment is called moderate sedation. After receiving the treatment, you may be sleepy, but you will be able to breathe on your own. The effects of the treatment may last for several hours. Follow these instructions along with Activity/Diet recommendations noted above: * Do NOT do anything where dizziness or clumsiness would be dangerous. * Rest quietly at home today, then you can be up and about tomorrow. * Have a responsible person stay with you the rest of today. * You may have had an I.V. today. If so, you may take the dressing off later today. Recommendations Call your doctor if: * Trouble breathing * Continuous vomiting for more than 24 hours * Temperature above 101 degrees * Severe abdominal pain or bloating * Pain not relieved by pain medicine ordered * There is increased drainage or redness from any incision * A large amount of rectal bleeding greater than 2-3 tablespoons. (If you had a polyp/s removed or have hemorrhoids, a small amount of blood - from the rectum is to be expected.) * You have any unanswered questions or concerns. IN THE EVENT OF A SERIOUS EMERGENCY, GO TO THE NEAREST EMERGENCY ROOM Your discharge instructions were prepared by provider Chip Liu. Patient Instructions Signature Page Roman Zapata Patient (or Guardian) Signature/Date: I have read and understand the instructions given to me by my caregivers. Caregiver/RN/Doctor Signature/Date: The above-named patient and/or guardian has received patient instructions on this date. + Original Patient Signature Page (only) stays with chart. Please make copy for patient.
[2017-08-12 09:33] VITALS: BP 163/90; PULSE 97; O2SAT 98
--- NOTE | 2017-08-12 09:41 | Anesthesiology Progress Note ---
Anesthesia Post Op Note Date & Time Aug 12, 2017 at 09:41 Vital Signs Pain Intensity: 0 Vital Signs Past 12 Hours Date Time Temp Pulse Resp B/P (MAP) Pulse Ox O2 Delivery O2 Flow Rate FiO2 08/12/17 09:33 97 18 163/90 (114) 98 Room Air 08/12/17 09:19 65 18 153/86 (108) 97 Room Air 08/12/17 09:03 72 16 122/81 (95) 97 Room Air 08/12/17 08:05 36.6 79 18 138/89 (105) 94 Room Air Notes Mental Status: alert / awake / arousable, participated in evaluation Pt Amnestic to Procedure: Yes Nausea / Vomiting: adequately controlled Pain: adequately controlled Airway Patency, RR, SpO2: stable & adequate BP & HR: stable & adequate Hydration State: stable & adequate Anesthetic Complications: no major complications apparent
== END | disposition home or self-care (01) ==
LOC: C.GI 07:41
PROVIDERS: ATTEND Internal Medicine
DX: Z12.11 Encounter for screening for malignant neoplasm of colon (principal); Z86.010 Personal history of colon polyps; K57.30 Diverticulosis of large intestine without perforation or abscess without bleeding; K64.8 Other hemorrhoids; I10 Essential (primary) hypertension; I25.10 Atherosclerotic heart disease of native coronary artery without angina pectoris; E11.9 Type 2 diabetes mellitus without complications; Z79.82 Long term (current) use of aspirin; Z88.0 Allergy status to penicillin; Z88.2 Allergy status to sulfonamides; Z80.0 Family history of malignant neoplasm of digestive organs

== ENCOUNTER → 2017-08-31 | Outpatient (CLI) | payer OTHER ==
[~2017-08-31] MED LIST changes: -LIDOCAINE HCL 2% 2 ML VIAL (20MG/ML) ONE; -PROPOFOL IV EMULSION 10 MG/ML 20 ML VIAL IV ONE; -SODIUM CHLORIDE 0.9% 500ML 500 ML IV ONE
== END | disposition home or self-care (01) ==
LOC: C.LABSPEC 17:32
PROVIDERS: ATTEND Dermatology
DX: L91.8 Other hypertrophic disorders of the skin (principal)

== ENCOUNTER → 2017-10-20 | Outpatient (CLI) | payer OTHER ==
--- NOTE | 2017-10-20 09:28 | DIAGNOSTIC IMAGING REPORT ---
CHEST 2 VIEWS ROUTINE CLINICAL HISTORY: M79.1 [id number] Nonocclusive coronary atherosclerosis of solomon coronaries SHORTNESS OF BREATH COMPARISON STUDY: 06/19/2017 FINDINGS: The heart is at the upper limits of normal in size. There is no failure. There is no focal pulmonary consolidation. There are no pleural effusions. There are minor linear atelectatic changes the lung bases.[ IMPRESSION: No active disease in the chest. Electronically signed by: Arnold Livingston M.D. 10/20/2017 9:27 AM Dictated Date/Time: 10/20/2017 9:26 AM
[2017-10-20 11:29] LABS: HEMATOCRIT 42.5 % (42-52); HEMOGLOBIN 14.8 g/dL (14.0-18.0); MEAN CELL VOLUME 85.3 fL (80-100); MEAN CORPUSCULAR HEMOGLOBIN 29.7 pg (25-34); MEAN CORPUSCULAR HGB CONC 34.8 g/dl (32-36); MEAN PLATELET VOLUME 9.3 fL (7.4-10.4); PLATELET COUNT 96 K/uL (130-400); RED CELL DISTRIBUTION WIDTH CV 13.7 % (11.5-14.5); RED CELL DISTRIBUTION WIDTH SD 42.7 fL (36.4-46.3)
[2017-10-20 13:23] LABS: BLOOD UREA NITROGEN 14 mg/dl (7-18); CALCIUM 8.9 mg/dl (8.5-10.1); CARBON DIOXIDE 29 mmol/L (21-32); CREATININE 1.17 mg/dl (0.60-1.40); GLUCOSE 104 mg/dl (70-99); POTASSIUM 3.3 mmol/L (3.5-5.1); SODIUM 138 mmol/L (136-145)
== END | disposition home or self-care (01) ==
LOC: C.RADBC 09:05
PROVIDERS: ATTEND Internal Medicine
DX: Z00.00 Encounter for general adult medical examination without abnormal findings (principal); I25.10 Atherosclerotic heart disease of native coronary artery without angina pectoris; M79.1 Myalgia; R06.02 Shortness of breath

== ENCOUNTER 2020-04-26 10:01 | Observation (INO) ==
--- NOTE | 2020-04-26 11:46 | History & Physical Bridge Note ---
Date of Service April 26, 2020 History & Physical Bridge Note I have examined the patient, reviewed the History & Physical and in the interval since the performance of the History & Physical I have noted the following changes of clinical significance: no changes noted
--- NOTE | 2020-04-26 11:47 | Pre Anesthesia Assessment ---
Date of Service April 26, 2020 Pre Sedation Assessment Vital Signs Temp Pulse Resp BP Pulse Ox 04/26/20 10:36 37 C 70 18 164/103 H 99 Cardiovascular RRR, no murmur, no edema Respiratory normal respiratory effort, lungs clear to auscultation Pre-Sedation Airway Assessment Smoking Status: Never smoker Hx Sleep Apnea: No Short, Thick Neck: No Oral Cavity: + WNL Mallampati Class: II ASA: ASA2 NPO Status Date of Last Intake of Fluids: 04/25/20 Time of Last Intake of Fluids: 21:00 Date of Last Intake of Solid Food: 04/25/20 Time of Last Intake of Solid Foods: 21:00 Procedure Planning Contraindications for Sedation: none Current Medications Reviewed: Yes Notes The planned sedation has been discussed with the patient. Informed Consent was obtained. I have identified the patient, determined the appropriateness of sedation and have assessed the patient immediately prior to the procedure. All medicine(s) and interventions are by my order.
[2020-04-26] MEDS ORDERED: niCARdipine HCL INJ 2.5 MG/ML 10 ML AMP ONE (13:38)
[2020-04-26] MEDS ORDERED: fentaNYL citrate 100 MCG/2 ML VIAL ONE ×2 (13:38→15:19)
[2020-04-26] MEDS ORDERED: MIDAZOLAM HCL 1 MG/ML 2ML VIAL ONE ×3 (13:38→15:18)
[2020-04-26] MEDS ORDERED: HEPARIN (PORCINE) 1000 UNIT/ML 10 ML (CATH LAB USE ONLY) ONE (13:38)
[2020-04-26] MEDS ORDERED: NITROGLYCERIN/D5W 100MCG/ML 20ML SYR ONE (13:39)
--- NOTE | 2020-04-26 14:42 | Cardiac Catheterization ---
[facility] Data: Optometrist Owner Cardiac Status Clinical evaluation leading to the procedure CAD Presenation: Positive Stress Test and Stable angina Anginal Classification: CCS III Heart Failure: No Cardiogenic Shock within 24 Hours: No Cardiac Arrest within 24 Hours: No Imaging Studies Past 6 Months: Yes Stress Studies Past 6 Months: Yes Standard Exercise Test: Yes - Positive and Risk/Extent of Ischemia (Intermediate) Stress Echocardiogram: Yes - Positive and Risk/Extent of Ischemia (Intermediate) Stress Testing w/SPECT MPI: No Cardiac CTA: No Coronary Anatomy Dominant: Right Left Ventricular Angiography EF (%): n/a Diagnostic Physicians Name: Donny Packer MD Status: Elective Closure Device Percutaneous Entry Location: Radial Closure Device: Radial Band Recommendations: PCI without planned CABG Cardiac Cath Procedure Full Procedure Date April 26, 2020 Pre-Procedure Diagnosis Pre-Procedure Diagnosis: Angina and Positive Stress Test (Exertional angina with abnormal stress echo (LAD) and ECG with angina during treadmill stress.) AUC Score AUC Score: 8 Post-Procedure Diagnosis Post-Procedure Diagnosis: Severe CAD and Normal Intracardiac Pressures Procedure(s) Performed Procedure(s) Performed: Coronary Angiography and Left Heart Cath Firearms Inspector Donny Packer MD Other Sports Coach Or Instructor(s) Charli Estimated Blood Loss Estimated Blood Loss: < 20 ml Medication(s) Medication(s): Fentanyl, Heparin, Lidocaine 1%, Nicardipine and Versed Summary of Findings Procedures: 1. Coronary angiography 2. Left heart catheterization 3. Moderate sedation Coronary angiography: 1. Left main coronary artery: LMCA is without significant CAD. 2. Left anterior descending: LAD is a large-caliber vessel proximally. Early mid LAD 90% just distal to bifurcation of small D1. Small D2. YAMILETH-3 flow throughout the LAD. 3. Circumflex: Circumflex is a medium caliber vessel that gives rise to a large caliber high OM1. Mid OM1 10%. 4. Right coronary artery: RCA is large and dominant. Proximal RCA 20%. Mid RCA 20 to 30%. Large PDA and PL without significant CAD. Left heart catheterization: 1. Left ventriculography was not performed. 2. Normal LVEDP; 7 mmHg. 3. No aortic stenosis. Peak to peak gradient across the aortic valve was 0. Moderate sedation: 1. Sedation start time: 1:57 PM 2. Sedation end time: 2:11 PM Impression: 1. Severe mid LAD CAD. 2. Otherwise, mild nonobstructive CAD. 3. Normal left-sided filling pressure. Plan: 1. Dr. Horne of interventional cardiology will review images to consider PCI of mid LAD. 2. Risk factor modification. Hemodynamics Rest Ao:: 141/64 Final Ao: 140/70 LV: 137/2/7 Recommendations Recommendations: PCI without planned CABG Specimens Specimens: None Radiation Exposure (mGy) 641 mGy. Fluoro time 1.9 min. 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 Any exceptions are noted below. [facility] Card Cath Procedure Codes Cardiac Catheterization Procedure 1: Cardiovascular Cath Procedures: 94365 Coronaries and LHC (+/-LV) Moderate Sedation Procedure 1: Sedation/Anesthesia: 52848 Mod Sedation by the same physician;Init15 Min Child Age 5 & Up PG Care Time/CCT Total # of Minutes Spent Total Time Spent with Patient: Total time spent is greater than 50% in coordination of care (as documented) at patient's floor/unit and/or counseling patient:
[2020-04-26] MEDS ORDERED: CLOPIDOGREL BISULFATE 300 MG TAB ONE (15:58)
[2020-04-26] MEDS ORDERED: ONDANSETRON INJ 2 MG/ML 2 ML VIAL IV PRN (17:18)
[2020-04-26] MEDS ORDERED: ACETAMINOPHEN 325 MG TAB PO PRN (17:18)
[2020-04-26] MEDS ORDERED: SODIUM CHLORIDE 0.9% 1000ML 1,000 ML IV SCH (17:30)
--- NOTE | 2020-04-26 17:33 | Cardiac Catheterization ---
[facility] Data: Cdl B Driver Cardiac Status Clinical evaluation leading to the procedure CAD Presenation: Positive Stress Test and Unstable angina Anginal Classification: CCS III Heart Failure: No Cardiogenic Shock within 24 Hours: No Cardiac Arrest within 24 Hours: No Imaging Studies Past 6 Months: Yes Stress Studies Past 6 Months: Yes Stress Echocardiogram: Yes - Positive and Risk/Extent of Ischemia (High) Diagnostic Physicians Name: Phi Horne MD Status: Elective Closure Device Percutaneous Entry Location: Radial Closure Device: Radial Band Recommendations: PCI without planned CABG PCI Indication: + Stress Test and Unstable Angina Lesion Segment Name: Mid LAD Culprit Artery: Yes Stenosis Prior to Rx (%): 90 Chronic Total Occlusion: No IVUS: No FFR: No Pre-Procedure YAMILETH Flow: 3 Previously Treated Lesion: No Lesion Complexity: Non-High/Non-C Lesion Length (mm): 12 Thrombus Present: Yes Bifurcation Lesion: Yes Guidewire Across Lesion: Stenosis Post-Procedure (%): 0 Post-Procedure YAMILETH Flow: 3 Devices(s) Deployed: Yes Yes Intraprocedure Events Significant Disection: No Perforation: No Cardiac Cath Procedure Full Procedure Date April 26, 2020 Pre-Procedure Diagnosis Pre-Procedure Diagnosis: Angina, Positive Stress Test (Exertional angina with abnormal stress echo (LAD) and ECG with angina during treadmill stress.) and CAD AUC Score AUC Score: 8 Post-Procedure Diagnosis Post-Procedure Diagnosis: Severe CAD and Successful PCI Procedure(s) Performed Procedure(s) Performed: Coronary Angiography and Drug Eluting Stent Crocodile Farmer Phi Horne MD District Operations Manager(s) Charli Estimated Blood Loss Estimated Blood Loss: < 20 ml Medication(s) Medication(s): Clopidogrel, Fentanyl, Heparin, Lidocaine 1%, Nicardipine, Nitroglycerin and Versed Summary of Findings Indication: Accelerating angina, abnormal stress test Access: 6F for right radial artery Catheters: EBU 3.5 guide Findings: For full details of patient's coronary angiography please see cath report dictated by Dr. Packer. Briefly, patient found to have severe single vessel disease with a earlymid 90% LAD stenosis. Decision to proceed with PCI. -- PCI -- Antithrombotic therapy: Heparin, clopidogrel Procedure: Left main cannulated with EBU 3.5 guide BMW wire passed across lesion into distal vessel Mid LAD lesion predilated with 2.5 compliant balloon Dilated lesion stented with 2.75 x 18 mm Taberg drug-eluting stent Stent post-dilated with stent balloon IC vasodilators administered for spasm Post procedure YAMILETH 3 flow, stent well expanded with minimal residual stenosis and no apparent cardiac complications. Arterial Closure: TR band Summary: 1. Successful PCI of proximal to mid LAD with single drug-eluting stent (2.75 x 18 mm Taberg). Recommendations: To PCU for continued monitoring Loaded with clopidogrel 600 mg in Cdl B Driver Continue dual-antiplatelet therapy for at least 6 months Continue statin, and ASCVD risk factor modification Consult cardiac Rehab Hemodynamics Rest Ao:: 164/79/112 Final Ao: 181/84/119 LV: -- Recommendations Recommendations: PCI without planned CABG Specimens Specimens: None Radiation Exposure (mGy) 1652 Contrast (mls) 105 Fluids (cc crystalloids) Fluids (cc crystalloids): 300 Drains Drains: None Anesthesia Moderate Procedural Complication(s) None Disposition PCU I attest to the content of the Intraoperative Record and any orders documented therein. Any exceptions are noted below. [facility] Card Cath Procedure Codes Moderate Sedation Procedure 1: Sedation/Anesthesia: 64323 Mod Sedation by the same physician; Ea [id number] Minutes Stenting Procedure 1: Cardiovascular Stent Procedures: 77207 Perc transcatheter placement of intracoronary stent(s), with ang PG Care Time/CCT Total # of Minutes Spent Total Time Spent with Patient: Total time spent is greater than 50% in coordination of care (as documented) at patient's floor/unit and/or counseling patient:
--- NOTE | 2020-04-26 17:36 | Discharge Summary ---
Date of Service April 26, 2020 Admission HPI Per Admitting Provider Patient presented for cardiac catheterization in the setting of accelerating angina and high risk, abnormal stress test. Discharge Data Consultations 04/26/20 17:20 Consult Cardiac Rehabilitation Routine Procedures Performed Operation Date: 04/26/20 11:00 Actual Procedures p Cath, Left with Cors and Vent - Donny Packer MD s Drug Eluting Stent SGl Vessel - Lavon Horne MD s Cineradiography w/Routine Exam - Donny Packer MD Hospital Course (1) Exertional angina: Patient found to have severe single-vessel disease with an earlymid LAD stenosis of 90%. He was treated with PCI with a single drug-eluting stent placed to his proximal to mid LAD. Procedure was uncomplicated. He was admitted for post procedure observation. No apparent access site complications. No post procedure chest pain. Telemetry unremarkable. Discharged home on dual antiplatelet therapy with aspirin, clopidogrel. Follow-up with cardiology in 1 week. Discharge Instructions Home Medications glucosamine 500 ga-pwlireczg-xznliiyo comp 400 mg-D3 667 unit-C-Mn cap 2 cap PO QAM cap 05/26/19 [History Confirmed 04/26/20] lisinopril 20 mg-hydrochlorothiazide 12.5 mg tablet 1 tab PO DAILY #90 tab 07/11/19 [Rx Confirmed 04/26/20] pravastatin 80 mg tablet 80 mg PO DAILY #90 tab 10/10/19 [Rx Confirmed 04/26/20] rabeprazole 20 mg tablet,delayed release 20 mg PO DAILY #90 tab 12/19/19 [Rx Confirmed 04/26/20] potassium gluconate 600 mg PO QAM 03/08/20 [History Confirmed 04/26/20] aspirin 81 mg tablet,delayed release 81 mg PO DAILY #90 tab 04/25/20 [Rx Confirmed 04/26/20] metoprolol succinate 50 mg tablet,extended release 24 hr 50 mg PO DAILY #30 tab 04/25/20 [Rx Confirmed 04/26/20] nitroglycerin 0.4 mg sublingual tablet 0.4 mg SUBLINGUAL Q5M PRN #25 tab 04/25/20 [Rx Confirmed 04/26/20] clopidogrel 75 mg PO QAM #30 tab 04/26/20 [Rx] Coding Level of Care Code 44632 OBS Care - Discharge Diagnoses Exertional angina I20.8
[2020-04-27] MEDS ORDERED: ASPIRIN 81 MG ECTAB PO SCH (09:00)
[2020-04-27] MEDS ORDERED: CLOPIDOGREL BISULFATE 75 MG TAB PO SCH (14:00)
== END 2020-04-26 21:10 | disposition home or self-care (01) ==
LOC: CC 10:01 → 2S 10:01